=== PATIENT | female | born 1995 | race Caucasian/White ===

== ENCOUNTER 2016-10-23 17:57 | Emergency (ER) | payer SELFPAY ==
[~2016-10-23] VITALS: Ht 165.1 cm; Wt 56.8 kg
[2016-10-23] MEDS ORDERED: birth control PO (18:10)
[2016-10-23 18:42] LABS: BASOPHILS % (AUTO) 0.4 % (0.0-2.0); EOSINOPHILS % (AUTO) 1.8 % (1.0-6.0); HEMATOCRIT 39.9 % (36-46); HEMOGLOBIN 13.3 g/dL (12.0-16.0); LYMPHOCYTES # (AUTO) 1.5 K/uL (1.0-4.8); LYMPHOCYTES % (AUTO) 25.2 % (22.0-44.0); MEAN CORPUSCULAR HEMOGLOBIN 29.5 pg (26.0-34.0); MEAN CORPUSCULAR HGB CONC 33.2 G/dL (31.0-37.0); MEAN CORPUSCULAR VOLUME 89 fL (80-100); MONOCYTES # (AUTO) 0.2 K/uL (0.1-1.0); NEUTROPHILS # (AUTO) 4.2 K/uL (1.8-7.7); NEUTROPHILS % (AUTO) 68.6 % (40.0-70.0); PLATELET COUNT (AUTO) 184 K/uL (150-450); RED BLOOD CELL COUNT(AUTO) 4.48 MIL/uL (4.00-5.20); RED CELL DISTRIBUTION WIDTH 13.3 % (11.5-14.5); WHITE BLOOD COUNT (AUTO) 6.1 K/uL (4.5-11.0)
[2016-10-23 18:54] LABS: ANION GAP 9 mmol/L (8-16); CALCIUM, TOTAL 8.5 mg/dL (8.8-10.5); CARBON DIOXIDE 28 mmol/L (22-29); CHLORIDE 106 mmol/L (98-107); CREATININE 0.81 mg/dL (0.60-1.30); GLOMERULAR FILTR. RATE CALC > 60 mL/min (>60); POTASSIUM 4.1 mmol/L (3.5-5.1); SODIUM SERUM 143 mmol/L (136-145); UREA NITROGEN, BLOOD 15 mg/dL (7-18)
[2016-10-23 19:00] LABS: ALANINE AMINOTRANSFERASE 20 U/L (12-78); ALBUMIN 3.9 g/dL (3.4-5.0); ASPARTATE AMINOTRANSFERASE 13 U/L (15-37); BILIRUBIN,TOTAL 0.3 mg/dL (0.1-1.0); TOTAL PROTEIN, SERUM 7.4 g/dL (6.4-8.2)
[2016-10-23] MEDS ORDERED: LORazepam 2 MG TABLET PO ONE (20:00)
[2016-10-23 20:24] VITALS: BP 118/72
== END 2016-10-23 20:26 | disposition home or self-care (01) ==
LOC: EMS 18:00
DX: R45.851 Suicidal ideations (principal); F32.9 Major depressive disorder, single episode, unspecified
CPT/HCPCS: 36415; 80053; 80307; 85025; 99284; G0480

== ENCOUNTER 2017-02-07 14:04 | Emergency (ER) | payer MEDICAID ==
[~2017-02-07] VITALS: Ht 165.1 cm; Wt 54.1 kg
[~2017-02-07 14:04] MED LIST: birth control PO
[2017-02-07 14:18] VITALS: BP 110/65
[2017-02-07 14:41] LABS: BASOPHILS # (AUTO) 0.03 K/uL (0.00-0.20); BASOPHILS % (AUTO) 0.3 % (0.0-2.0); EOSINOPHILS # (AUTO) 0.03 K/uL (0.00-0.70); EOSINOPHILS % (AUTO) 0.32 % (1.0-6.0); HEMATOCRIT 37.3 % (36-46); HEMOGLOBIN 12.4 g/dL (12.0-16.0); LYMPHOCYTES # (AUTO) 1.2 K/uL (1.0-4.8); LYMPHOCYTES % (AUTO) 12.3 % (22.0-44.0); MEAN CORPUSCULAR HEMOGLOBIN 29.9 pg (26.0-34.0); MEAN CORPUSCULAR HGB CONC 33.3 G/dL (31.0-37.0); MEAN CORPUSCULAR VOLUME 90 fL (80-100); MONOCYTES # (AUTO) 0.2 K/uL (0.1-1.0); MONOCYTES % (AUTO) 2.4 % (2.0-9.0); NEUTROPHILS # (AUTO) 8.3 K/uL (1.8-7.7); NEUTROPHILS % (AUTO) 84.7 % (40.0-70.0); PLATELET COUNT (AUTO) 177 K/uL (150-450); RED BLOOD CELL COUNT(AUTO) 4.16 MIL/uL (4.00-5.20); RED CELL DISTRIBUTION WIDTH 12.8 % (11.5-14.5); WHITE BLOOD COUNT (AUTO) 9.8 K/uL (4.5-11.0)
[2017-02-07 14:51] LABS: ANION GAP 10 mmol/L (8-16); CALCIUM, TOTAL 8.8 mg/dL (8.8-10.5); CARBON DIOXIDE 26 mmol/L (22-29); CHLORIDE 104 mmol/L (98-107); CREATININE 0.99 mg/dL (0.60-1.30); GLOMERULAR FILTR. RATE CALC > 60 mL/min (>60); POTASSIUM 3.7 mmol/L (3.5-5.1); SODIUM SERUM 140 mmol/L (136-145); UREA NITROGEN, BLOOD 14 mg/dL (7-18)
[2017-02-07 14:57] LABS: ALANINE AMINOTRANSFERASE 23 U/L (12-78); ASPARTATE AMINOTRANSFERASE 18 U/L (15-37); BILIRUBIN,TOTAL 0.3 mg/dL (0.1-1.0); TOTAL PROTEIN, SERUM 7.2 g/dL (6.4-8.2)
== END 2017-02-07 16:40 | disposition home or self-care (01) ==
LOC: EMS 14:05 → EEVIPCON 14:05 → EMS 16:40
DX: F32.9 Major depressive disorder, single episode, unspecified (principal); Z88.0 Allergy status to penicillin
CPT/HCPCS: 36415; 80053; 80307; 85025; 99285; G0480